=== PATIENT | female | born 1945 | race Caucasian/White ===

== ENCOUNTER 2019-02-10 14:36 | Emergency (ER) | payer BC, MEDICAID ==
[~2019-02-10] VITALS: Ht 165.1 cm; Wt 90.0 kg
[~2019-02-10 14:36] MED LIST: AMOXICILLIN; LORATADINE; MECLIZINE; [UNRECOGNIZED DRUG - REMARK]
[2019-02-10 17:37] LABS: BASOPHILS % 0.7 % (0.0-2.0); EOSINOPHILS % 2.2 % (0.0-5.0); HEMATOCRIT. 34.5 % (36.0-48.0); HEMOGLOBIN. 11.8 g/dL (12.0-16.0); LYMPHOCYTES % 26.5 % (20.0-50.0); MEAN CORPUSCULAR HEMOGLOBIN 32.2 pg (28.0-32.0); MEAN PLATELET VOLUME 8.3 fl (7.4-10.4); NEUTROPHILS % 65.6 % (40.0-76.0); PLATELET 184 x1000/uL (130-400); RED BLOOD CELL COUNT 3.67 mill/uL (4.2-5.4); RED CELL DISTRIBUTION WIDTH 13.2 % (11.6-14.6)
[2019-02-10 17:43] LABS: PROTHROMBIN TIME 10.3 sec (9.6-11.0)
[2019-02-10 17:44] LABS: CHLORIDE 106 mEq/L (98-107)
[2019-02-10 18:46] VITALS: BP 140/53
== END 2019-02-10 18:56 | disposition home or self-care (01) ==
LOC: ER 14:36
DX: R04.0 Epistaxis (principal); D64.9 Anemia, unspecified; E11.9 Type 2 diabetes mellitus without complications
CPT/HCPCS: 36415; 99283

== ENCOUNTER 2019-02-13 19:53 | Emergency (ER) | payer MEDICARE, MEDICAID ==
[~2019-02-13] VITALS: Ht 154.9 cm; Wt 93.0 kg
[2019-02-13] MEDS ORDERED: SODIUM CHLORIDE 0.9% 1,000 ML IV ONE (21:36)
[2019-02-13 22:26] LABS: BASOPHILS % 0.8 % (0.0-2.0); EOSINOPHILS % 2.6 % (0.0-5.0); HEMATOCRIT. 34.6 % (36.0-48.0); LYMPHOCYTES % 29.8 % (20.0-50.0); MEAN CORPUSCULAR HEMOGLOBIN 32.4 pg (28.0-32.0); MEAN CORPUSCULAR VOLUME 93.8 fL (81.0-99.0); MEAN PLATELET VOLUME 8.9 fl (7.4-10.4); MONOCYTES % 5.8 % (2.0-8.0); PLATELET 191 x1000/uL (130-400); RED BLOOD CELL COUNT 3.69 mill/uL (4.2-5.4)
[2019-02-13 22:32] LABS: CHLORIDE 104 mEq/L (98-107)
[2019-02-13 22:33] LABS: PARTIAL THROMBOPLASTIN TIME 30.7 sec (23.4-31.0); PROTHROMBIN TIME 10.3 sec (9.6-11.0)
[2019-02-14 00:29] VITALS: BP 148/79
== END 2019-02-14 00:30 | disposition home or self-care (01) ==
LOC: ER 19:53
DX: R04.0 Epistaxis (principal); I10 Essential (primary) hypertension; E11.9 Type 2 diabetes mellitus without complications
CPT/HCPCS: 36415; 80053; 85025; 85610; 85730; 93005; 99283; J7030

== ENCOUNTER 2020-05-15 00:15 | Emergency (ER) | payer MEDICARE, MEDICAID ==
[~2020-05-15] VITALS: Ht 165.1 cm; Wt 100.0 kg
[2020-05-15 01:30] VITALS: BP 120/62
== END 2020-05-15 01:30 | disposition home or self-care (01) ==
LOC: ER 00:15
DX: K52.9 Noninfective gastroenteritis and colitis, unspecified (principal)
CPT/HCPCS: 99282

== ENCOUNTER 2021-10-27 12:11 | Emergency (ER) | payer MEDICARE, MEDICAID | END 2021-10-27 13:12 | disposition left against medical advice (07) | LOC: ER 12:11 | DX: Z53.21 Procedure and treatment not carried out due to patient leaving prior to being seen by health care provider (principal) ==

== ENCOUNTER 2021-10-27 21:54 | Inpatient (IN) | payer MEDICARE, MEDICAID ==
[~2021-10-27] VITALS: Ht 165.1 cm; Wt 74.5 kg
[2021-10-27 23:59] LABS: BASOPHILS % 0.5 % (0.0-2.0); EOSINOPHILS % 0.4 % (0.0-5.0); HEMATOCRIT. 37.5 % (36.0-48.0); HEMOGLOBIN. 13.1 g/dL (12.0-16.0); LYMPHOCYTES % 17.1 % (20.0-50.0); MEAN CORPUSCULAR HEMOGLOBIN 32.7 pg (28.0-32.0); MEAN CORPUSCULAR VOLUME 93.6 fL (81.0-99.0); MONOCYTES % 7.3 % (2.0-8.0); NEUTROPHILS % 74.7 % (40.0-76.0); PLATELET 177 x1000/uL (130-400); RED BLOOD CELL COUNT 4.01 mill/uL (4.2-5.4)
[2021-10-28] LABS: CHLORIDE 102 mEq/L (98-107)
[2021-10-28 01:50] LABS: CLARITY URINE CLOUDY (CLEAR); COLOR URINE YELLOW (YELLOW); KETONES URINE NEGATIVE (NEGATIVE); LEUKOCYTE ESTERASE URINE NEGATIVE (NEGATIVE); NITRITE URINE POSITIVE (NEGATIVE); OCCULT BLOOD URINE NEGATIVE (NEGATIVE); PROTEIN URINE TRACE (NEGATIVE)
[2021-10-28] MEDS ORDERED: FUROSEMIDE 40MG/4ML VIAL IVP ONE (02:00)
[2021-10-28] MEDS ORDERED: HYDROCODONE/ACETAMINOPHEN 5/325MG TABLET PO PRN (06:00)
[2021-10-28] MEDS ORDERED: ONDANSETRON HCL 4MG/2ML INJ IV PRN (06:00)
[2021-10-28] MEDS ORDERED: ACETAMINOPHEN 325MG TABLET PO PRN (06:00)
[2021-10-28] MEDS ORDERED: CLONIDINE 0.1MG TABLET PO PRN (06:00)
[2021-10-28] MEDS ORDERED: NALOXONE HCL 0.4MG/ML VIAL IV PRN (06:15)
[2021-10-28] MEDS ORDERED: CEFTRIAXONE 1 G PREMIX 50 ML IV SCH (06:30)
[2021-10-28] MEDS: FUROSEMIDE 40MG/4ML VIAL IV SCH (08:32)
[2021-10-28] MEDS: ENOXAPARIN 40MG/0.4ML SYR SUBCUT SCH (08:32)
[2021-10-28] MEDS: LISINOPRIL 10MG TABLET PO SCH (08:55)
[2021-10-28 11:00] VITALS: BP 132/48
[2021-10-28 12:12] VITALS: BP 132/48
[2021-10-28 16:05] VITALS: BP 124/40
[2021-10-28 20:00] VITALS: BP 142/51
[2021-10-29] VITALS: BP 132/45
[2021-10-29 04:00] VITALS: BP 129/48
[2021-10-29] MEDS ORDERED: GUAIFENESIN 200MG/10ML SUGAR FREE UDC PO PRN (05:00)
[2021-10-29] MEDS ORDERED: CEFTRIAXONE 1,000 MG in DEXTROSE 5% WATER 50 ML IV SCH (06:00)
[2021-10-29 08:00] VITALS: BP 118/46
[2021-10-29 08:50] LABS: BASOPHILS % 0.5 % (0.0-2.0); EOSINOPHILS % 1.1 % (0.0-5.0); HEMATOCRIT. 37.1 % (36.0-48.0); HEMOGLOBIN. 12.6 g/dL (12.0-16.0); LYMPHOCYTES % 26.1 % (20.0-50.0); MEAN CORPUSCULAR VOLUME 93.9 fL (81.0-99.0); MEAN PLATELET VOLUME 8.7 fl (7.4-10.4); MONOCYTES % 11.1 % (2.0-8.0); NEUTROPHILS % 61.2 % (40.0-76.0); PLATELET 161 x1000/uL (130-400); RED BLOOD CELL COUNT 3.95 mill/uL (4.2-5.4); RED CELL DISTRIBUTION WIDTH 13.2 % (11.6-14.6)
[2021-10-29] MEDS: LISINOPRIL 10MG TABLET PO SCH (08:52)
[2021-10-29] MEDS: FUROSEMIDE 40MG/4ML VIAL IV SCH (08:52)
[2021-10-29] MEDS: ENOXAPARIN 40MG/0.4ML SYR SUBCUT SCH (08:52)
[2021-10-29 09:00] LABS: CHLORIDE 102 mEq/L (98-107)
[2021-10-29 09:08] LABS: HDL CHOLESTEROL 43 mg/dL (40-59); LDL CHOLESTEROL 105 mg/dL (5-100)
[2021-10-29 12:00] VITALS: BP 114/46
[2021-10-29] MEDS ORDERED: ATOR20TA PO (13:11)
[2021-10-29 13:46] VITALS: BP 114/46
[2021-10-29] MEDS ORDERED: ATORVASTATIN CALCIUM 20MG TABLET PO SCH (21:00)
== END 2021-10-29 16:26 | disposition home or self-care (01) | DRG 291 ==
LOC: ER 21:54 → 6WST 10-28 03:25 → EDBEDREQ 10-28 03:27 → ENRESERV 10-28 11:00
PROVIDERS: ADMIT Hospitalist; ATTEND Hospitalist
DX: I11.0 Hypertensive heart disease with heart failure (principal); I50.31 Acute diastolic (congestive) heart failure; N39.0 Urinary tract infection, site not specified; E78.5 Hyperlipidemia, unspecified; E11.9 Type 2 diabetes mellitus without complications
CPT/HCPCS: 36415; 71045; 80053; 80061; 81003; 83036; 83880; 84484; 85025; 93005; 93306; 93970; 99285; J0696; J1650; J1940; J7060

== ENCOUNTER 2022-03-01 20:19 | Emergency (ER) | payer MEDICARE, MEDICAID ==
[~2022-03-01] VITALS: Ht 165.1 cm; Wt 92.6 kg
[~2022-03-01 20:19] MED LIST changes: +ATOR20TA PO
[2022-03-01 20:53] VITALS: BP 165/56
[2022-03-01 23:48] LABS: BASOPHILS % 0.8 % (0.0-2.0); CHLORIDE 107 mEq/L (98-107); EOSINOPHILS % 2.3 % (0.0-5.0); HEMATOCRIT. 36.8 % (36.0-48.0); HEMOGLOBIN. 12.7 g/dL (12.0-16.0); MEAN CORPUSCULAR HEMOGLOBIN 32.7 pg (28.0-32.0); MEAN CORPUSCULAR VOLUME 95.1 fL (81.0-99.0); MEAN PLATELET VOLUME 8.1 fl (7.4-10.4); MONOCYTES % 5.9 % (2.0-8.0); PLATELET 195 x1000/uL (130-400); RED BLOOD CELL COUNT 3.87 mill/uL (4.2-5.4); RED CELL DISTRIBUTION WIDTH 12.8 % (11.6-14.6)
[2022-03-02] MEDS ORDERED: FURO-151 MT (04:36)
[2022-03-02] MEDS ORDERED: POTA-202 MT (04:36)
== END 2022-03-02 04:54 | disposition home or self-care (01) ==
LOC: ER 20:19
DX: R60.9 Edema, unspecified (principal); I11.0 Hypertensive heart disease with heart failure; I50.9 Heart failure, unspecified; E11.9 Type 2 diabetes mellitus without complications
CPT/HCPCS: 36415; 71045; 80053; 83880; 84484; 85025; 93970; 99285

== ENCOUNTER 2022-08-23 16:48 | Emergency (ER) | payer MEDICARE, MEDICAID ==
[~2022-08-23] VITALS: Ht 160 cm; Wt 89.0 kg
[~2022-08-23 16:48] MED LIST changes: +FURO-151 MT; +POTA-202 MT
[2022-08-23 16:59] VITALS: BP 155/51
== END 2022-08-24 00:10 | disposition home or self-care (01) ==
LOC: ER 16:48
DX: S09.8XXA Other specified injuries of head, initial encounter (principal); B34.9 Viral infection, unspecified; X58.XXXA Exposure to other specified factors, initial encounter; Y93.89 Activity, other specified; Y92.89 Other specified places as the place of occurrence of the external cause
CPT/HCPCS: 99284

== ENCOUNTER 2022-11-22 04:39 | Emergency (ER) | payer OTHER, MEDICAID ==
[~2022-11-22] VITALS: Ht 165.1 cm; Wt 86.0 kg
[2022-11-22 05:14] LABS: BASOPHILS % 1.2 % (0.0-2.0); EOSINOPHILS % 2.5 % (0.0-5.0); HEMATOCRIT. 35.9 % (36.0-48.0); HEMOGLOBIN. 12.4 g/dL (12.0-16.0); LYMPHOCYTES % 30.4 % (20.0-50.0); MEAN PLATELET VOLUME 7.8 fl (7.4-10.4); NEUTROPHILS % 57.9 % (40.0-76.0); PLATELET 212 x1000/uL (130-400); RED BLOOD CELL COUNT 3.87 mill/uL (4.2-5.4); RED CELL DISTRIBUTION WIDTH 13.3 % (11.6-14.6)
[2022-11-22 05:36] LABS: CHLORIDE 108 mEq/L (98-107)
[2022-11-22 05:40] LABS: PROTHROMBIN TIME 10.4 sec (9.6-11.0)
[2022-11-22 05:40] LABS: CLARITY URINE CLEAR (CLEAR); COLOR URINE YELLOW (YELLOW); KETONES URINE TRACE (NEGATIVE); LEUKOCYTE ESTERASE URINE NEGATIVE (NEGATIVE); NITRITE URINE NEGATIVE (NEGATIVE); OCCULT BLOOD URINE NEGATIVE (NEGATIVE); PROTEIN URINE NEGATIVE (NEGATIVE); SPECIFIC GRAVITY URINE 1.021 (1.005-1.030)
[2022-11-22] MEDS ORDERED: FURO-152 MT (07:58)
[2022-11-22 08:16] VITALS: BP 136/89
== END 2022-11-22 08:17 ==
LOC: ER 04:39
DX: M79.89 Other specified soft tissue disorders (principal); I10 Essential (primary) hypertension
CPT/HCPCS: 36415; 71045; 80053; 81003; 83880; 84484; 85025; 93005; 99285

== ENCOUNTER 2023-04-24 16:03 | Emergency (ER) | payer OTHER, BC ==
[~2023-04-24] VITALS: Ht 160 cm; Wt 91.0 kg
[~2023-04-24 16:03] MED LIST changes: +FURO-152 MT
[2023-04-24 16:31] VITALS: BP 119/46; RESP 18; TEMP 99.1; O2SAT 97
[2023-04-24 16:36] VITALS: PULSE 78
[2023-04-24] MEDS ORDERED: AZIT250T12 MT (17:33)
== END 2023-04-24 18:00 | disposition home or self-care (01) ==
LOC: ER 16:03
DX: J06.9 Acute upper respiratory infection, unspecified (principal); I10 Essential (primary) hypertension
CPT/HCPCS: 99281; 99283